=== PATIENT | male | born 1990 | race Two or more races ===

== ENCOUNTER 2021-01-04 16:11 | Inpatient (IN) | payer OTHER, MEDICAID ==
[~2021-01-04] VITALS: Ht 160 cm; Wt 83.9 kg
[2021-01-04] MEDS ORDERED: diphenhdrAMINE HCL 50 MG/1 ML VL IV ONE (16:30)
[2021-01-04] MEDS ORDERED: SODIUM CHLORIDE 0.9% 500 ML IV ONE (16:30)
[2021-01-04] MEDS ORDERED: methylPREDNISolone SOD SUCC 125 MG/2 ML VL IV ONE (16:30)
[2021-01-04 17:18] LABS: Basophils # (auto) 0 10 ^3/uL (0-0.2); Basophils % (auto) 0.6 % (0.0-2.0); Eosinophils # (auto) 0 10 ^3/uL (0-0.8); Eosinophils % (auto) 0.7 % (0.0-7.0); Hematocrit 34.3 % (41.0-53.0); Hemoglobin 12.3 g/dL (13.5-17.5); Lymphocytes # (auto) 0.8 10 ^3/uL (0.4-5.4); Lymphocytes % (auto) 13.5 % (10.0-50.0); Mean Corpuscular Hemoglobin 30.2 pg (28.0-32.0); Mean Corpuscular Hgb Conc. 35.7 g/dL (32.0-36.0); Mean Corpuscular Volume 84.6 fL (80.0-100.0); Monocytes # (auto) 0.8 10 ^3/uL (0-1.3); Neutrophils # (auto) 4.4 10 ^3/uL (1.6-8.6); Neutrophils % (auto) 72.2 % (37.0-80.0); Nucleated Red Blood Cells % 0.1 %; Red Blood Cells 4.05 10^6/uL (4.5-5.90); Red Cell Distribution Width 13.8 % (11.8-14.3)
[2021-01-04 17:54] LABS: Albumin 3.6 g/dL (3.4-5.0); Calcium 8.2 mg/dL (8.5-10.1); Potassium 3.5 mmol/L (3.5-5.1)
[2021-01-04 17:56] LABS: Bilirubin, Total 0.7 mg/dL (0.2-1.0); Total Protein 7.3 g/dL (6.4-8.2)
[2021-01-04] MEDS ORDERED: ONDANSETRON HCL 4 MG/2 ML VIAL IV ONE (19:00)
[2021-01-04] MEDS ORDERED: HYDROmorphone HCL 2 MG/ML VL IV ONE (19:00)
[2021-01-04] MEDS ORDERED: MORPHINE SULFATE INJECTION 2 MG/2 ML SYRG IV PRN (21:45)
[2021-01-04] MEDS ORDERED: SODIUM CHLORIDE 0.9% 1,000 ML IV SCH (21:45)
[2021-01-04] MEDS ORDERED: DOCUSATE SOD 100 MG CAP PO PRN (21:45)
[2021-01-04] MEDS ORDERED: diphenhdrAMINE HCL 50 MG/1 ML VL IV PRN (21:45)
[2021-01-04] MEDS ORDERED: ACETAMINOPHEN 325 MG TAB PO PRN (21:45)
[2021-01-04] MEDS ORDERED: NITROGLYCERIN 0.4 MG SL TAB SL PRN (21:45)
[2021-01-04] MEDS: methylPREDNISolone SOD SUCC 40 MG/ML VL IV SCH (22:51)
[2021-01-04] MEDS: FAMOTIDINE (10MG/ML) 2ML VL IV SCH (22:51)
[2021-01-04] MEDS: ASCORBIC ACID 500 MG TAB PO SCH (22:54)
[2021-01-05 04:29] LABS: Basophils # (auto) 0 10 ^3/uL (0-0.2); Basophils % (auto) 0.1 % (0.0-2.0); Eosinophils # (auto) 0 10 ^3/uL (0-0.8); Eosinophils % (auto) 0.1 % (0.0-7.0); Hematocrit 34.5 % (41.0-53.0); Hemoglobin 12.1 g/dL (13.5-17.5); Lymphocytes # (auto) 0.5 10 ^3/uL (0.4-5.4); Lymphocytes % (auto) 12.5 % (10.0-50.0); Mean Corpuscular Hemoglobin 29.8 pg (28.0-32.0); Mean Corpuscular Hgb Conc. 35.2 g/dL (32.0-36.0); Mean Corpuscular Volume 84.7 fL (80.0-100.0); Monocytes # (auto) 0.2 10 ^3/uL (0-1.3); Monocytes % (auto) 5.5 % (0.0-12.0); Neutrophils % (auto) 81.8 % (37.0-80.0); Nucleated Red Blood Cells % 0.2 %; Red Blood Cells 4.08 10^6/uL (4.5-5.90); Red Cell Distribution Width 14.1 % (11.8-14.3); White Blood Cell 3.6 10^3/uL (4.4-10.8)
[2021-01-05 04:56] LABS: Potassium 4.3 mmol/L (3.5-5.1)
[2021-01-05 05:02] LABS: Albumin 3.5 g/dL (3.4-5.0); BUN/Creatinine Ratio 26.6; Bilirubin, Total 0.5 mg/dL (0.2-1.0); Calcium 8.8 mg/dL (8.5-10.1); Total Protein 7.1 g/dL (6.4-8.2)
[2021-01-05] MEDS ORDERED: HYDROmorphone HCL 2 MG/ML VL ONE (05:16)
[2021-01-05] MEDS: ONDANSETRON HCL 4 MG/2 ML VIAL IV PRN ×4 (05:23→20:09)
[2021-01-05] MEDS: methylPREDNISolone SOD SUCC 40 MG/ML VL IV SCH ×2 (06:50→14:32)
[2021-01-05] MEDS ORDERED: ENOXAPARIN SOD 40 MG/0.4 ML SYRINGE SC SCH (10:00)
[2021-01-05] MEDS ORDERED: ZINC SULFATE 220mg CAP or TAB PO SCH (10:00)
[2021-01-05] MEDS ORDERED: MULTIPLE VITAMIN TAB PO SCH (10:00)
[2021-01-05] MEDS ORDERED: AZITHROMYCIN 500MG/ 250ML 250 ML IV SCH (10:00)
[2021-01-05] MEDS: FAMOTIDINE (10MG/ML) 2ML VL IV SCH (10:12)
[2021-01-05] MEDS: ASCORBIC ACID 500 MG TAB PO SCH (10:13)
[2021-01-05] MEDS: HYDROmorphone HCL 2 MG/ML VL IV PRN ×3 (10:14→20:09)
[2021-01-05] MEDS ORDERED: D5W/SOD CHLO 0.9% 1,000 ML IV SCH ×2 (11:30→13:00)
[2021-01-05 21:44] VITALS: BP 114/76
== END 2021-01-05 21:48 | disposition home or self-care (01) | DRG 915 ==
LOC: EDBD 16:11 → ER 16:11 → TELE 21:43
PROVIDERS: ADMIT Nurse Practitioner Family; ATTEND Family Medicine
DX: T88.6XXA Anaphylactic reaction due to adverse effect of correct drug or medicament properly administered, initial encounter (principal); J18.9 Pneumonia, unspecified organism; N17.0 Acute kidney failure with tubular necrosis; R06.03 Acute respiratory distress; K12.30 Oral mucositis (ulcerative), unspecified; T40.2X5A Adverse effect of other opioids, initial encounter; T78.49XA Other allergy, initial encounter; Z20.822 Contact with and (suspected) exposure to COVID-19; Y92.89 Other specified places as the place of occurrence of the external cause; Z85.830 Personal history of malignant neoplasm of bone; Z88.6 Allergy status to analgesic agent; Z88.8 Allergy status to other drugs, medicaments and biological substances; Z80.9 Family history of malignant neoplasm, unspecified; Z83.3 Family history of diabetes mellitus
CPT/HCPCS: 36415; 71045; 80053; 82962; 85025; 87426; 93005; 96361; 96365; 96366; 96372; 96375; 96376; 99291; G0378; J2405; J3490

== ENCOUNTER 2021-01-06 12:41 | Emergency (ER) | payer OTHER, MEDICAID ==
[~2021-01-06] VITALS: Ht 160 cm; Wt 86.2 kg
[2021-01-06 14:28] VITALS: BP 119/86
== END 2021-01-06 14:39 | disposition home or self-care (01) ==
LOC: ER 12:41
DX: G89.29 Other chronic pain (principal); R01.1 Cardiac murmur, unspecified; Z98.890 Other specified postprocedural states; Z88.5 Allergy status to narcotic agent; Z88.8 Allergy status to other drugs, medicaments and biological substances; Z90.89 Acquired absence of other organs